=== PATIENT | male | born 1995 | race Caucasian/White ===

== ENCOUNTER 2018-02-01 13:35 | Emergency (ER) | payer BC ==
[2018-02-01] MEDS ORDERED: ONDANSETRON DISINTEGRATING 4 MG TAB PO ONE (13:50)
[2018-02-01] MEDS ORDERED: HALOPERIDOL LACT 5 MG/ML INJ IVP ONE (14:42)
[2018-02-01] MEDS ORDERED: NS 1,000 ML IV ONE (14:42)
--- NOTE | 2018-02-01 14:45 | EDPHY ---
H & P Stated Complaint: n/v/d Time Seen by Provider: 02/01/18 14:28 HPI/ROS: CHIEF COMPLAINT: Intractable nausea vomiting HISTORY OF PRESENT ILLNESS: 22-year-old male complaining of 3-4 days of intractable nausea, vomiting as well as intermittent loose stools. No focal abdominal pain. No testicular pain. No headache. No hematemesis. No fever or chills. No cough. No URI symptoms. REVIEW OF SYSTEMS: 10 systems reviewed and negative with the exception of the elements mentioned in the history of present illness PAST MEDICAL & SURGICAL HISTORY: Prior history of similar episodes of vomiting SOCIAL HISTORY: Daily marijuana PHYSICAL EXAM (Prior to examination, patient consented to physical exam, hands were washed and my usual and customary physical exam procedures followed) 1) GENERAL: Well-developed, well-nourished, alert and oriented. Appears uncomfortable, appears anxious, hyperventilating, retching 2) HEAD: Normocephalic, atraumatic 3) HEENT: Pupils equal, round, reactive to light bilaterally. Sclera anicteric. Nasopharynx, oropharynx, clear, no lesions. Dry mucous membranes. Ears bilaterally with normal tympanic membranes. 4) NECK: Full range of motion, no meningeal signs. 5) LUNGS: Clear auscultation bilaterally, no wheezes, no rhonchi, no retractions. 6) HEART: Regular rate and rhythm, no murmur, no heave, no gallop. 7) ABDOMEN: No guarding, no rebound, no focal tenderness, negative McBurney's, negative Wick's, negative Rovsing's, negative peritoneal sign, 8) MUSCULOSKELETAL: Moving all extremities, no focal areas of tenderness, no obvious trauma. No peripheral edema or discoloration. 9) BACK: No CVA tenderness, no midline vertebral tenderness, no fluctuance, no step-off, no obvious trauma, no visual or palpable abnormality. 10) SKIN: No rash, no petechiae. 11) Psychiatric: Patient is oriented X 3, there is no agitation. DIFFERENTIAL DIAGNOSIS: My differential diagnosis includes, but is not limited to, acute appendicitis, acute cholecystitis, bowel obstruction, acute pancreatitis, cannabis hyperemesis,, gastritis and urinary tract infection. The patient understands that this diagnosis is provisional and can never be 100 % accurate. This is a partial list of diagnoses considered. These considerations are based on history, physical exam, past history and reassessment. - Personal History Current Tetanus/Diphtheria Vaccine: Yes Current Tetanus Diphtheria and Acellular Pertussis (TDAP): Yes - Medical/Surgical History Hx Asthma: No Hx Chronic Respiratory Disease: No Hx Diabetes: No Hx Cardiac Disease: No Hx Renal Disease: No Hx Cirrhosis: No Hx Alcoholism: No Hx HIV/AIDS: No Hx Splenectomy or Spleen Trauma: No Other PMH: back surgery 2017, - Social History Smoking Status: Never smoked Constitutional: Initial Vital Signs Temperature (C) 36.6 C 02/01/18 13:38 Heart Rate 68 02/01/18 13:38 Respiratory Rate 24 H 02/01/18 13:38 Blood Pressure 133/84 H 02/01/18 13:38 O2 Sat (%) 99 02/01/18 13:38 O2 Delivery Mode Room Air Allergies/Adverse Reactions: No Known Allergies Allergy (Unverified 02/01/18 13:37) Home Medications: Medication Instructions Recorded Ondansetron Odt [Zofran Odt] 4 mg PO Q4PRN PRN #10 tab 02/01/18 Medical Decision Making ED Course/Re-evaluation: 2:43 p.m.: Patient mentions he had similar symptoms while in [place], [place] few years ago, was given "something that made me sleep "and when he woke up he was asymptomatic. He does note daily marijuana use history. Will administer IV fluids check laboratory studies administer IV Haldol and re-evaluated. Discussed possibility of cannabis hyperemesis syndrome, we discussed possibility of cyclic vomiting syndrome. At this time doubt acute surgical abdominal pathology in absence of abdominal pain. I saw this patient independently based on established practice protocols. Care of patient under supervision of secondary supervising physician Dr Henderson with whom I discussed case. 403 p.m.: Re-evaluation after IV Haldol and IV fluids. Sleeping, easily woken , states that he is "totally better". Re-examined his abdomen at this time which is soft no guarding no rebound no McBurney's point pain. I am unable to elicit any abdominal pain. At this time I think that acute surgical abdominal pathology is less than likely in this patient. I do not think that imaging studies are indicated at this time. We discussed possible etiologies for symptoms including, but not limited to, viral gastroenteritis, cannabis hyperemesis. Recommend moderation with his marijuana use. Provided my usual and customary dietary precautions instructions. Discharged with oral Zofran. He feels comfortable being discharged. - Data Points Laboratory Results: Laboratory Results 02/01/18 14:10 02/01/18 14:10 02/01/18 02/01/18 14:10 14:10 WBC 12.53 10^3/uL H 10^3/uL (3.80-9.50) RBC 5.58 10^6/uL 10^6/uL (4.40-6.38) Hgb 16.9 g/dL g/dL (13.7-17.5) Hct 48.7 % % (40.0-51.0) MCV 87.3 fL fL (81.5-99.8) MCH 30.3 pg pg (27.9-34.1) MCHC 34.7 g/dL g/dL (32.4-36.7) RDW 12.0 % % (11.5-15.2) Plt Count 363 10^3/uL 10^3/uL (150-400) MPV 9.4 fL fL (8.7-11.7) Neut % (Auto) 85.2 % H % (39.3-74.2) Lymph % (Auto) 7.6 % L % (15.0-45.0) [place] % (Auto) 5.3 % % (4.5-13.0) Eos % (Auto) 0.6 % % (0.6-7.6) Baso % (Auto) 0.6 % % (0.3-1.7) Nucleat RBC Rel Count 0.0 % % (0.0-0.2) Absolute Neuts (auto) 10.68 10^3/uL H 10^3/uL (1.70-6.50) Absolute Lymphs (auto) 0.95 10^3/uL L 10^3/uL (1.00-3.00) Absolute Monos (auto) 0.66 10^3/uL 10^3/uL (0.30-0.80) Absolute Eos (auto) 0.08 10^3/uL 10^3/uL (0.03-0.40) Absolute Basos (auto) 0.07 10^3/uL 10^3/uL (0.02-0.10) Absolute Nucleated RBC 0.00 10^3/uL 10^3/uL (0-0.01) Immature Gran % 0.7 % % (0.0-1.1) Immature Gran # 0.09 10^3/uL 10^3/uL (0.00-0.10) Sodium 141 mEq/L mEq/L (135-145) Potassium 3.7 mEq/L mEq/L (3.3-5.0) Chloride 104 mEq/L mEq/L (97-110) Carbon Dioxide 23 mEq/l mEq/l (22-31) Anion Gap 14 mEq/L mEq/L (8-16) BUN 17 mg/dL mg/dL (7-23) Creatinine 0.8 mg/dL mg/dL (0.7-1.3) Estimated GFR > 60 Glucose 138 mg/dL H mg/dL (70-100) Calcium 10.4 mg/dL mg/dL (8.5-10.4) Total Bilirubin 0.8 mg/dL mg/dL (0.1-1.4) Conjugated Bilirubin 0.2 mg/dL mg/dL (0.0-0.5) Unconjugated Bilirubin 0.6 mg/dL mg/dL (0.0-1.1) AST 28 IU/L IU/L (17-59) ALT 48 IU/L IU/L (21-72) Alkaline Phosphatase 110 IU/L IU/L (38-126) Total Protein 7.6 g/dL g/dL (6.3-8.2) Albumin 4.6 g/dL g/dL (3.5-5.0) Lipase 97 IU/L IU/L (23-300) Medications Given: Discontinued Medications Haloperidol Lactate (Haldol Injection) 2.5 mg IVP EDNOW ONE Stop: 02/01/18 14:43 Last Admin: 02/01/18 15:01 Dose: 2.5 mg Sodium Chloride (Ns) 1,000 mls @ 0 mls/hr IV ONCE ONE PRN Reason: Wide Open Stop: 02/01/18 14:43 Last Admin: 02/01/18 15:00 Dose: 1,000 mls Ondansetron HCl (Zofran Odt) 4 mg PO EDNOW ONE Stop: 02/01/18 13:51 Last Admin: 02/01/18 13:51 Dose: 4 mg Departure - Departure Disposition: Home, Routine, Self-Care Clinical Impression: Volume depletion Nausea & vomiting Qualifiers: Vomiting type: unspecified Vomiting Intractability: non-intractable Qualified Code(s): R11.2 - Nausea with vomiting, unspecified Condition: Good Instructions: Acute Nausea and Vomiting (ED) Additional Instructions: Seek immediate medical attention if you develop new or worsening symptoms, if you develop fevers, chills, inability to tolerate oral intake or any other symptoms that concerns you. I recommend moderation or discontinuation of marijuana use. Do not eat spicy foods, do not eat acidic foods, do not drink energy drinks or similar. Do not drink alcohol. Referrals: Pilo Uribe MD [Medical Doctor] - 2-3 days, call for appt. Prescriptions: Ondansetron Odt [Zofran Odt] 4 mg PO Q4PRN PRN #10 tab PRN Reason: Nausea
[2018-02-01 14:52] LABS: PLATELET COUNT 363 10^3/uL (150-400)
[2018-02-01 16:13] VITALS: BP 105/75
== END 2018-02-01 16:18 | disposition home or self-care (01) ==
DX: R11.2 Nausea with vomiting, unspecified (principal); E86.9 Volume depletion, unspecified
CPT/HCPCS: 96374; J1630

== ENCOUNTER 2018-06-11 09:35 | Emergency (ER) | payer BC ==
[2018-06-11] MEDS ORDERED: ONDANSETRON 4 MG/2 ML VIAL ONE ×2 (09:52→15:06)
--- NOTE | 2018-06-11 09:58 | EDPHY ---
H & P Smoking Status: Never smoked Time Seen by Provider: 06/11/18 09:41 HPI/ROS: CHIEF COMPLAINT: Nausea vomiting HISTORY OF PRESENT ILLNESS: The patient is a 23-year-old male presents emergency department with ongoing nausea and vomiting for 3 days. Patient states he is unable to keep anything down. Patient states he has had this previously and was told it was related to marijuana use. Patient is currently using marijuana. Patient had no exposure to bad food. He denies significant abdominal pain. He has had no fevers or chills. The patient had a few episodes of nonbloody emesis. REVIEW OF SYSTEMS: 10 systems were reveiwed and are negative with the exception of the elements mentioned in the history of present illness. (Marjorie Jacobsen) Past Medical/Surgical History: Includes diskectomy in 2017 Social history: Patient smokes THC. He smokes cigarettes. (Marjorie Jacobsen) Physical Exam: 36.9, 155/99, 67, 16, 97% on room air GENERAL: No acute distress, alert. HEENT: Eyes normal to inspection, dry mucous membranes. NECK: Normal, supple. RESPIRATORY: Clear to auscultation bilaterally, no rales, rhonchi or wheezing. CVS: Regular rate and rhythm, no rubs, murmurs, or gallops. ABDOMEN: Soft, nontender, nondistended, no organomegaly. Benign BACK: Normal to inspection, no CVA tenderness. SKIN: Normal color, no rash, warm, dry. No pallor. EXTREMITIES: No pedal edema, no calf tenderness, no joint swelling. NEURO/PSYCH: Alert and oriented, normal mood and affect, normal motor sensory exam. (Marjorie Jacobsen S) Constitutional: Initial Vital Signs Temperature (C) 36.9 C 06/11/18 09:37 Heart Rate 67 06/11/18 09:37 Respiratory Rate 16 06/11/18 09:37 Blood Pressure 155/99 H 06/11/18 09:37 O2 Sat (%) 97 06/11/18 09:37 O2 Delivery Mode Room Air Allergies/Adverse Reactions: No Known Allergies Allergy (Unverified 02/01/18 13:37) Home Medications: Medication Instructions Recorded Ondansetron Odt [Zofran Odt] 4 mg PO Q4PRN PRN #10 tab 02/01/18 Ondansetron Odt [Zofran Odt 4 mg 4 mg PO Q4PRN PRN #7 tab 06/11/18 (*)] Medical Decision Making ED Course/Re-evaluation: In the emergency department I discussed possible etiologies with the patient. I answered all his questions. IV was placed. Patient given normal saline a 2 L IV for hydration. Given Zofran 4 mg IV for nausea. Laboratory studies were obtained. On recheck the patient continued to have nausea. He is given Phenergan 12.5 mg IV. White count is elevated at 12. Chemistry panel is unremarkable. I rechecked the patient. He still feeling nauseated. Because of this he was given Haldol 5 mg IV. On recheck the patient had no abdominal tenderness. His abdomen is soft, nontender nondistended. He still had nausea. He is given Zofran 4 mg IV and 1/ 3 L of normal saline. 14 30: I rechecked the patient. He is feeling much better. He had no abdominal pain. No nausea vomiting. His abdomen is soft, nontender nondistended. Patient is able to ambulate to the bathroom. 1445: The patient again developed nausea when he returned to the room. He requested 1 more dose of antinausea medicine. Zofran 4 mg IV given. 1500: Patient is signed out to Dr. Garsia at change of shift. The patient continues to have nausea after this dose of Zofran he will be admitted for further inpatient treatment and evaluation. If the patient feels better after this medication he is written up for discharge. (Marjorie Jacobsen) Patient was re-evaluated by me at 5:30 p.m.. He has no further nausea vomiting. He feels well enough to be discharged. He is offered admission but feels that he is fine to go home. We discussed treatment plan including criteria for return importance of follow-up and further evaluation. He expresses understanding and agreement. He will be given take-home Zofran as well as prescription for Zofran. (Shun Garsia) Differential Diagnosis: My differential includes but is not limited to vomiting, gastroenteritis, cyclic vomiting, electrolyte abnormality, sugar abnormality, small-bowel obstruction, perforation, cholecystitis, pancreatitis (Marjorie Jacobsen) - Data Points Laboratory Results: Laboratory Results 06/11/18 10:01 06/11/18 10:01 06/11/18 06/11/18 10:01 10:01 WBC 12.74 10^3/uL H 10^3/uL (3.80-9.50) RBC 5.54 10^6/uL 10^6/uL (4.40-6.38) Hgb 17.3 g/dL g/dL (13.7-17.5) Hct 49.8 % % (40.0-51.0) MCV 89.9 fL fL (81.5-99.8) MCH 31.2 pg pg (27.9-34.1) MCHC 34.7 g/dL g/dL (32.4-36.7) RDW 12.5 % % (11.5-15.2) Plt Count 297 10^3/uL 10^3/uL (150-400) MPV 9.7 fL fL (8.7-11.7) Neut % (Auto) 81.9 % H % (39.3-74.2) Lymph % (Auto) 10.0 % L % (15.0-45.0) [place] % (Auto) 6.5 % % (4.5-13.0) Eos % (Auto) 0.8 % % (0.6-7.6) Baso % (Auto) 0.5 % % (0.3-1.7) Nucleat RBC Rel Count 0.0 % % (0.0-0.2) Absolute Neuts (auto) 10.43 10^3/uL H 10^3/uL (1.70-6.50) Absolute Lymphs (auto) 1.28 10^3/uL 10^3/uL (1.00-3.00) Absolute Monos (auto) 0.83 10^3/uL H 10^3/uL (0.30-0.80) Absolute Eos (auto) 0.10 10^3/uL 10^3/uL (0.03-0.40) Absolute Basos (auto) 0.06 10^3/uL 10^3/uL (0.02-0.10) Absolute Nucleated RBC 0.00 10^3/uL 10^3/uL (0-0.01) Immature Gran % 0.3 % % (0.0-1.1) Immature Gran # 0.04 10^3/uL 10^3/uL (0.00-0.10) Sodium 137 mEq/L mEq/L (135-145) Potassium 3.5 mEq/L mEq/L (3.5-5.2) Chloride 101 mEq/L mEq/L (97-110) Carbon Dioxide 23 mEq/l mEq/l (22-31) Anion Gap 13 mEq/L mEq/L (6-14) BUN 23 mg/dL mg/dL (7-23) Creatinine 0.9 mg/dL mg/dL (0.7-1.3) Estimated GFR > 60 Glucose 130 mg/dL H mg/dL (70-100) Calcium 10.5 mg/dL H mg/dL (8.5-10.4) Medications Given: Discontinued Medications Haloperidol Lactate (Haldol Injection) 5 mg IVP EDNOW ONE Stop: 06/11/18 11:58 Last Admin: 06/11/18 12:36 Dose: 5 mg Sodium Chloride (Ns) 1,000 mls @ 0 mls/hr IV ONCE ONE; Wide Open PRN Reason: Protocol Stop: 06/11/18 10:04 Last Admin: 06/11/18 10:07 Dose: 1,000 mls Sodium Chloride (Ns) 1,000 mls @ 0 mls/hr IV ONCE ONE; Wide Open PRN Reason: Protocol Stop: 06/11/18 10:05 Last Admin: 06/11/18 10:07 Dose: 1,000 mls Sodium Chloride (Ns) 1,000 mls @ 0 mls/hr IV ONCE ONE PRN Reason: Wide Open Stop: 06/11/18 13:13 Last Admin: 06/11/18 13:35 Dose: 1,000 mls Ondansetron HCl (Zofran) 4 mg IVP EDNOW ONE Stop: 06/11/18 10:04 Last Admin: 06/11/18 10:07 Dose: 4 mg Ondansetron HCl (Zofran) 4 mg IVP EDNOW ONE Stop: 06/11/18 13:13 Last Admin: 06/11/18 13:36 Dose: 4 mg Ondansetron HCl (Zofran) 4 mg IVP EDNOW ONE Stop: 06/11/18 15:09 Last Admin: 06/11/18 15:10 Dose: 4 mg Promethazine HCl (Phenergan) 12.5 mg IVP EDNOW ONE Stop: 06/11/18 10:26 Last Admin: 06/11/18 10:26 Dose: 12.5 mg Departure - Departure Disposition: Home, Routine, Self-Care Clinical Impression: Vomiting Qualifiers: Vomiting type: unspecified Vomiting Intractability: non-intractable Nausea presence: with nausea Qualified Code(s): R11.2 - Nausea with vomiting, unspecified Condition: Good Instructions: Acute Nausea and Vomiting (ED) Additional Instructions: Return with increasing abdominal pain, repeat vomiting, fever or any other concerns. You been given follow-up with the on-call physician Dr. Ferrell. Call this week to make a follow-up appointment. Referrals: Rosendo Petersen MD [Medical Doctor] - 5-7 days, call for appt. Prescriptions: Ondansetron Odt [Zofran Odt 4 mg (*)] 4 mg PO Q4PRN PRN #7 tab PRN Reason: For Nausea & Vomiting
[2018-06-11] MEDS ORDERED: ONDANSETRON 4 MG/2 ML VIAL IVP ONE ×3 (10:03→15:08)
[2018-06-11] MEDS ORDERED: NS 1,000 ML IV ONE ×3 (10:03→13:12)
[2018-06-11 10:16] LABS: PLATELET COUNT 297 10^3/uL (150-400)
[2018-06-11] MEDS ORDERED: PROMETHAZINE HCL 25 MG/ML INJ ONE (10:24)
[2018-06-11] MEDS ORDERED: PROMETHAZINE HCL 25 MG/ML INJ IVP ONE (10:25)
[2018-06-11] MEDS ORDERED: HALOPERIDOL LACT 5 MG/ML INJ IVP ONE (11:57)
[2018-06-11] MEDS ORDERED: ONDANSETRON 4MG PREPACK#2 BTL TAKEHOME ONE (14:39)
[2018-06-11 17:10] VITALS: BP 126/79
== END 2018-06-11 17:13 | disposition home or self-care (01) ==
DX: R11.2 Nausea with vomiting, unspecified (principal); F12.90 Cannabis use, unspecified, uncomplicated
CPT/HCPCS: 96374; J1630; J2405; J2550